=== PATIENT | male | born 1950 ===

== ENCOUNTER 2020-04-23 10:41 | Inpatient (IN) ==
[2020-04-23] MEDS ORDERED: DILTIAZEM 50 MG/10 ML VIAL IV STA (11:02)
[2020-04-23] MEDS ORDERED: SODIUM CHLORIDE 0.9% 1,000 ML IV STA (11:19)
[2020-04-23] MEDS ORDERED: dilTIAZem Drip 125 MG/125 ML PREMIX IV SCH (11:30)
[2020-04-23 12:22] LABS: Basophils # 0.1 10*3/uL (0.0-0.2); Basophils % 0.5 % (0.0-0.8); Eosinophils # 0.2 10*3/uL (0.0-0.87); Eosinophils % 1.9 % (0.00-10.9); Hematocrit 35.1 VOL% (42.0-52.0); Immature Granulocytes Absolute 0.65 #; Lymphocytes # 0.5 10*3/uL (1.4-4.0); Lymphocytes % 5.4 % (21.2-54.2); Mean Corpuscular HGB Conc 31.3 GM/DL (32-36); Mean Corpuscular Volume 93.9 FL (87-102); Mean Platelet Volume 9.6 FL (9.6-12.0); Monocytes % 6.7 % (1.7-12.7); NRBC # 0.07 10*3/uL; Neutrophils % 78.5 % (38.7-73.9); Platelet Count 106 T/CUMM (130-400); Red Blood Count 3.74 MC/CUMM (3.8-5.5); Red Cell Distribution Width 20.5 % (9.3-17.3); White Blood Count 9.3 T/CUMM (4-12)
[2020-04-23 12:37] LABS: INR 1.4; PT Patient Result 14.6 SECS (9.8-11.9); Partial Thromboplastin Time 35.5 SECS (23.9-33.8)
[2020-04-23 12:54] LABS: Albumin 1.8 G/DL (3.4-5.0); Bilirubin,Total 2.7 MG/DL (0.2-1.0); Calcium 8.1 MG/DL (8.5-10.1); Osmolality,Calculated 292.8 MOS/KG (273-304)
[2020-04-23] MEDS ORDERED: CALCIUM CHLORIDE 1,000 MG/10 ML SYRINGE IV STA (12:59)
[2020-04-23] MEDS ORDERED: DEXTROSE 50% 25 GM/50 ML VIAL IV STA (12:59)
[2020-04-23] MEDS ORDERED: INSULIN REGULAR 100 UNIT/ML IV STA (12:59)
[2020-04-23] MEDS ORDERED: SODIUM BICARBONATE 50 MEQ/50 ML VIAL IV STA (12:59)
[2020-04-23 13:03] LABS: Bacteria,Urine Occasional /HPF (Few); Blood, Urine Negative (Negative); Glucose,Urine (UA) Negative (Negative); Hyaline Casts,Urine 11 /LPF (0-3); Ketones,Urine Negative (Negative); Mucus,Urine Occasional /LPF (Occasional); Nitrite,Urine Negative (Negative); Protein,Urine Negative; RBC,Urine 6 /HPF (0-4); Squamous Epithelial Cell,Urine Occasional /HPF (0-10); Urine Appearance CLEAR (Clear); Urine Color Amber (Yellow); Urine Specific Gravity 1.017 (1.001-1.035); WBC,Urine 16 /HPF (0-6)
[2020-04-23 13:08] LABS: Bilirubin,Urine Small mg/dL (Negative)
[2020-04-23 13:12] LABS: Band Neutrophils 24 % (0-10); Eosinophils 2 % (0-10); Lymphocytes 7 % (20-55); Metamyelocytes 1 %; Nucleated Red Blood Cells 3 (0-5); Platelet Estimate Adequate; Segmented Neutrophils 61 % (50-85); Total Cells Counted 100
[2020-04-23 13:13] LABS: Anisocytosis 2+; Burr Cells Few; Macrocytosis 1+; Polychromasia Slight
[2020-04-23] MEDS ORDERED: cefTRIAXone 1,000 MG in SODIUM CHLORIDE 0.9% 100 ML IV STA (13:15)
[2020-04-23] MEDS ORDERED: DEXTROSE 50% 25 GM/50 ML SYRINGE IV ONE (13:41)
[2020-04-23] MEDS ORDERED: DIGOXIN 0.5 MG/2 ML AMP IV ONE (15:11)
[2020-04-23] MEDS ORDERED: ALBUTEROL 2.5 MG/3 ML NEB RESP TX PRN (15:13)
[2020-04-23] MEDS: SODIUM BICARB INJ 100 MEQ in STERILE WATER INJ 1,000 ML IV SCH (15:30)
[2020-04-23 16:14] LABS: Calcium 8.3 MG/DL (8.5-10.1); Osmolality,Calculated 295.2 MOS/KG (273-304)
[2020-04-23] MEDS: cefTRIAXone 1,000 MG in SYRINGE 1 EACH IV SCH (16:22)
[2020-04-23] MEDS: DOXYCYCLINE HYCLATE INJ 100 MG in SODIUM CHLORIDE 0.9% 100 ML IV SCH (21:50)
[2020-04-24] MEDS: SODIUM BICARB INJ 100 MEQ in STERILE WATER INJ 1,000 ML IV SCH ×3 (04:14→23:26)
[2020-04-24 04:39] LABS: Basophils % 0.4 % (0.0-0.8); Eosinophils # 0.3 10*3/uL (0.0-0.87); Eosinophils % 3.3 % (0.00-10.9); Hematocrit 31.4 VOL% (42.0-52.0); Hemoglobin 10.1 GM/DL (14.0-18.0); Immature Granulocytes % 6.4 %; Immature Granulocytes Absolute 0.63 #; Lymphocytes # 0.7 10*3/uL (1.4-4.0); Lymphocytes % 7.2 % (21.2-54.2); Mean Corpuscular HGB Conc 32.2 GM/DL (32-36); Mean Corpuscular Volume 92.9 FL (87-102); Monocytes % 6.7 % (1.7-12.7); NRBC # 0.12 10*3/uL; Platelet Count 109 T/CUMM (130-400); Red Blood Count 3.38 MC/CUMM (3.8-5.5); Red Cell Distribution Width 20.4 % (9.3-17.3); White Blood Count 9.8 T/CUMM (4-12)
[2020-04-24 04:47] LABS: INR 1.3; PT Patient Result 13.9 SECS (9.8-11.9)
[2020-04-24 05:00] LABS: Albumin 1.9 G/DL (3.4-5.0); Bilirubin,Total 2.2 MG/DL (0.2-1.0); Calcium 8.4 MG/DL (8.5-10.1); Osmolality,Calculated 289.7 MOS/KG (273-304); Total Protein 6.8 G/DL (6.4-8.3)
[2020-04-24 05:04] LABS: Band Neutrophils 5 % (0-10); Eosinophils 3 % (0-10); Lymphocytes 4 % (20-55); Segmented Neutrophils 82 % (50-85); Total Cells Counted 100
[2020-04-24 05:05] LABS: Hypochromasia 1+; Platelet Estimate Decreased
[2020-04-24 05:06] LABS: Macrocytosis Slight
[2020-04-24] MEDS: dilTIAZem Drip 125 MG/125 ML PREMIX IV SCH (06:28)
[2020-04-24] MEDS ORDERED: dilTIAZem Drip 125 MG/125 ML PREMIX IV SCH (06:30)
[2020-04-24] MEDS: MORPHINE 4 MG/1 ML VIAL IV PRN (08:25)
[2020-04-24] MEDS: ONDANSETRON 4 MG/2 ML VIAL IV PRN (08:25)
[2020-04-24] MEDS: DOXYCYCLINE HYCLATE INJ 100 MG in SODIUM CHLORIDE 0.9% 100 ML IV SCH ×2 (10:02→23:26)
[2020-04-24] MEDS: PANTOPRAZOLE 40 MG TABLET PO SCH (10:45)
[2020-04-24] MEDS: DIGOXIN 0.125 MG TABLET PO SCH (14:35)
[2020-04-24] MEDS: cefTRIAXone 1,000 MG in SYRINGE 1 EACH IV SCH (16:52)
[2020-04-24] MEDS: TRIAMCINOLONE 0.1% CREAM 15 GM TUBE TOP SCH ×2 (16:55→21:30)
[2020-04-24] MEDS: INSULIN LISPRO 100 UNIT/ML SUBCUT SCH (21:20)
[2020-04-24] MEDS: WARFARIN 2.5 MG TABLET PO SCH (21:24)
[2020-04-24 23:35] LABS: ABG Base Excess -3.8 MMOL/L (-2.5-2.5); ABG HCO3 21.3 MMOL/L (20-26); ABG Oxygen Saturation 98.3 % (95-100); ABG PCO2 34.5 MM HG (35-48); ABG PH 7.385 (7.35-7.45)
[2020-04-24] MEDS: SKIN HEALING OINT (AQUAPHOR) 50 GM TUBE TOP PRN (23:51)
[2020-04-25] MEDS ORDERED: SODIUM CHLORIDE 0.9% 500 ML IV ONE (00:18)
[2020-04-25 05:21] LABS: Basophils # 0.1 10*3/uL (0.0-0.2); Basophils % 0.5 % (0.0-0.8); Eosinophils # 0.4 10*3/uL (0.0-0.87); Eosinophils % 3.9 % (0.00-10.9); Hematocrit 30.2 VOL% (42.0-52.0); Hemoglobin 9.7 GM/DL (14.0-18.0); Immature Granulocytes % 7.1 %; Immature Granulocytes Absolute 0.73 #; Lymphocytes # 0.8 10*3/uL (1.4-4.0); Lymphocytes % 8.1 % (21.2-54.2); Mean Corpuscular HGB Conc 32.1 GM/DL (32-36); Mean Corpuscular Volume 92.6 FL (87-102); Mean Platelet Volume 9.8 FL (9.6-12.0); Monocytes % 5.7 % (1.7-12.7); NRBC # 0.14 10*3/uL; Neutrophils % 74.7 % (38.7-73.9); Red Blood Count 3.26 MC/CUMM (3.8-5.5); Red Cell Distribution Width 20.8 % (9.3-17.3); White Blood Count 10.3 T/CUMM (4-12)
[2020-04-25 05:35] LABS: Platelet Count 95 T/CUMM (130-400)
[2020-04-25 05:48] LABS: Band Neutrophils 2 % (0-10); Eosinophils 4 % (0-10); Hypochromasia Slight; Lymphocytes 5 % (20-55); Nucleated Red Blood Cells 2 (0-5); Platelet Estimate Decreased; Segmented Neutrophils 85 % (50-85); Total Cells Counted 100
[2020-04-25 06:03] LABS: Albumin 1.6 G/DL (3.4-5.0); Bilirubin,Total 1.9 MG/DL (0.2-1.0); Calcium 7.5 MG/DL (8.5-10.1); Osmolality,Calculated 281.1 MOS/KG (273-304); Total Protein 5.9 G/DL (6.4-8.3)
[2020-04-25] MEDS: dilTIAZem Drip 125 MG/125 ML PREMIX IV SCH ×2 (07:57→23:48)
[2020-04-25] MEDS: INSULIN LISPRO 100 UNIT/ML SUBCUT SCH ×4 (08:29→21:05)
[2020-04-25] MEDS: PANTOPRAZOLE 40 MG TABLET PO SCH (09:33)
[2020-04-25] MEDS: DOXYCYCLINE HYCLATE INJ 100 MG in SODIUM CHLORIDE 0.9% 100 ML IV SCH ×2 (09:33→21:04)
[2020-04-25] MEDS: SODIUM BICARB INJ 100 MEQ in STERILE WATER INJ 1,000 ML IV SCH ×2 (10:45→21:06)
[2020-04-25] MEDS: SKIN HEALING OINT (AQUAPHOR) 50 GM TUBE TOP PRN (12:00)
[2020-04-25] MEDS: TRIAMCINOLONE 0.1% CREAM 80 GM TUBE TOP SCH ×2 (13:00→21:07)
[2020-04-25] MEDS: DIGOXIN 0.125 MG TABLET PO SCH (13:41)
[2020-04-25] MEDS: cefTRIAXone 1,000 MG in SYRINGE 1 EACH IV SCH (15:00)
[2020-04-25] MEDS: SODIUM HYPOCHLORITE 0.25% IRRIG 473 ML BOTTLE TOP SCH (16:19)
[2020-04-25] MEDS: NOREPINEPHRINE 16 MG in SODIUM CHLORIDE 0.9% 234 ML IV PRN (17:19)
[2020-04-25] MEDS: WARFARIN 2.5 MG TABLET PO SCH (17:43)
[2020-04-26] MEDS: SKIN HEALING OINT (AQUAPHOR) 50 GM TUBE TOP PRN ×3 (04:34→16:30)
[2020-04-26 04:48] LABS: Basophils # 0.1 10*3/uL (0.0-0.2); Basophils % 0.5 % (0.0-0.8); Eosinophils # 0.1 10*3/uL (0.0-0.87); Eosinophils % 0.8 % (0.00-10.9); Hematocrit 29.9 VOL% (42.0-52.0); Hemoglobin 9.9 GM/DL (14.0-18.0); Immature Granulocytes % 6.6 %; Immature Granulocytes Absolute 0.76 #; Lymphocytes # 0.8 10*3/uL (1.4-4.0); Lymphocytes % 7.3 % (21.2-54.2); Mean Corpuscular HGB Conc 33.1 GM/DL (32-36); Mean Corpuscular Volume 91.4 FL (87-102); Mean Platelet Volume 10.1 FL (9.6-12.0); Monocytes % 6.3 % (1.7-12.7); NRBC # 0.13 10*3/uL; Neutrophils % 78.5 % (38.7-73.9); Platelet Count 102 T/CUMM (130-400); Red Blood Count 3.27 MC/CUMM (3.8-5.5); Red Cell Distribution Width 20.8 % (9.3-17.3); White Blood Count 11.5 T/CUMM (4-12)
[2020-04-26] MEDS: dilTIAZem Drip 125 MG/125 ML PREMIX IV SCH (05:05)
[2020-04-26 05:14] LABS: Lymphocytes 7 % (20-55); Nucleated Red Blood Cells 1 (0-5); Platelet Estimate Decreased; Segmented Neutrophils 89 % (50-85); Total Cells Counted 100
[2020-04-26 05:15] LABS: Hypochromasia 1+; Microcytosis 1+; Ovalocytes Slight
[2020-04-26 07:25] LABS: Albumin 1.8 G/DL (3.4-5.0); Bilirubin,Total 1.8 MG/DL (0.2-1.0); Calcium 7.1 MG/DL (8.5-10.1); Osmolality,Calculated 276.6 MOS/KG (273-304); Total Protein 6.2 G/DL (6.4-8.3)
[2020-04-26] MEDS: ONDANSETRON 4 MG/2 ML VIAL IV PRN (07:28)
[2020-04-26] MEDS: INSULIN LISPRO 100 UNIT/ML SUBCUT SCH ×4 (07:29→21:06)
[2020-04-26] MEDS: SODIUM BICARB INJ 100 MEQ in STERILE WATER INJ 1,000 ML IV SCH ×2 (09:11→20:50)
[2020-04-26] MEDS ORDERED: SODIUM POLYSTYRENE SULFATE 15 GM/60 ML BOTTLE PO ONE ×2 (09:17→17:19)
[2020-04-26] MEDS: DOXYCYCLINE HYCLATE INJ 100 MG in SODIUM CHLORIDE 0.9% 100 ML IV SCH ×2 (09:20→21:09)
[2020-04-26] MEDS: PANTOPRAZOLE 40 MG TABLET PO SCH (09:20)
[2020-04-26] MEDS: TRIAMCINOLONE 0.1% CREAM 80 GM TUBE TOP SCH ×2 (09:20→21:10)
[2020-04-26] MEDS: SODIUM HYPOCHLORITE 0.25% IRRIG 473 ML BOTTLE TOP SCH (09:20)
[2020-04-26] MEDS: DIGOXIN 0.125 MG TABLET PO SCH (12:33)
[2020-04-26] MEDS ORDERED: SODIUM POLYSTYRENE SULFATE 15 GM/60 ML BOTTLE PO PRN (14:19)
[2020-04-26] MEDS: cefTRIAXone 1,000 MG in SYRINGE 1 EACH IV SCH (15:00)
[2020-04-26] MEDS: WARFARIN 2.5 MG TABLET PO SCH (17:48)
[2020-04-26] MEDS: NOREPINEPHRINE 16 MG in SODIUM CHLORIDE 0.9% 234 ML IV PRN (21:03)
[2020-04-26] MEDS: ALBUMIN 25% 25 GM in PREMIX 1 EACH IV SCH (21:08)
[2020-04-27 05:29] LABS: Basophils % 0.2 % (0.0-0.8); Eosinophils % 0.4 % (0.00-10.9); Hematocrit 25.8 VOL% (42.0-52.0); Hemoglobin 8.7 GM/DL (14.0-18.0); Immature Granulocytes % 4.5 %; Immature Granulocytes Absolute 0.47 #; Lymphocytes # 0.8 10*3/uL (1.4-4.0); Lymphocytes % 7.9 % (21.2-54.2); Mean Corpuscular HGB Conc 33.7 GM/DL (32-36); Mean Platelet Volume 10.1 FL (9.6-12.0); Monocytes % 6.6 % (1.7-12.7); NRBC # 0.07 10*3/uL; Neutrophils % 80.4 % (38.7-73.9); Red Cell Distribution Width 21.1 % (9.3-17.3); White Blood Count 10.3 T/CUMM (4-12)
[2020-04-27 05:30] LABS: INR 1.4; PT Patient Result 14.8 SECS (9.8-11.9)
[2020-04-27 05:31] LABS: Platelet Count 98 T/CUMM (130-400)
[2020-04-27 05:47] LABS: Calcium 7.1 MG/DL (8.5-10.1); Osmolality,Calculated 286.2 MOS/KG (273-304); Total Protein 6.2 G/DL (6.4-8.3)
[2020-04-27 06:00] LABS: Platelet Estimate Decreased
[2020-04-27 06:26] LABS: Hypochromasia 1+
[2020-04-27] MEDS: dilTIAZem Drip 125 MG/125 ML PREMIX IV SCH ×2 (06:33→22:32)
[2020-04-27] MEDS: SODIUM BICARB INJ 100 MEQ in STERILE WATER INJ 1,000 ML IV SCH ×2 (07:00→23:21)
[2020-04-27] MEDS: INSULIN LISPRO 100 UNIT/ML SUBCUT SCH ×4 (07:50→21:49)
[2020-04-27] MEDS: ALBUMIN 25% 25 GM in PREMIX 1 EACH IV SCH ×2 (08:45→21:48)
[2020-04-27] MEDS: PANTOPRAZOLE 40 MG TABLET PO SCH (08:45)
[2020-04-27] MEDS: TRIAMCINOLONE 0.1% CREAM 80 GM TUBE TOP SCH ×2 (09:15→21:48)
[2020-04-27] MEDS: DOXYCYCLINE HYCLATE INJ 100 MG in SODIUM CHLORIDE 0.9% 100 ML IV SCH ×2 (11:15→21:48)
[2020-04-27] MEDS: SODIUM HYPOCHLORITE 0.25% IRRIG 473 ML BOTTLE TOP SCH (13:15)
[2020-04-27] MEDS: DIGOXIN 0.125 MG TABLET PO SCH (13:25)
[2020-04-27] MEDS: cefTRIAXone 1,000 MG in SYRINGE 1 EACH IV SCH (15:05)
[2020-04-27] MEDS: WARFARIN 2.5 MG TABLET PO SCH (17:28)
[2020-04-27] MEDS: NOREPINEPHRINE 16 MG in SODIUM CHLORIDE 0.9% 234 ML IV PRN (22:47)
[2020-04-28 04:11] LABS: Basophils % 0.3 % (0.0-0.8); Eosinophils # 0.1 10*3/uL (0.0-0.87); Eosinophils % 0.8 % (0.00-10.9); Hematocrit 22.2 VOL% (42.0-52.0); Hemoglobin 7.3 GM/DL (14.0-18.0); Immature Granulocytes % 3.5 %; Immature Granulocytes Absolute 0.25 #; Lymphocytes # 0.5 10*3/uL (1.4-4.0); Lymphocytes % 6.5 % (21.2-54.2); Mean Corpuscular HGB Conc 32.9 GM/DL (32-36); Mean Corpuscular Volume 90.6 FL (87-102); Mean Platelet Volume 9.7 FL (9.6-12.0); Monocytes % 7.7 % (1.7-12.7); NRBC # 0.03 10*3/uL; Neutrophils % 81.2 % (38.7-73.9); Platelet Count 57 T/CUMM (130-400); Red Blood Count 2.45 MC/CUMM (3.8-5.5); Red Cell Distribution Width 20.7 % (9.3-17.3); White Blood Count 7.1 T/CUMM (4-12)
[2020-04-28 04:15] LABS: INR 1.8; PT Patient Result 19.2 SECS (9.8-11.9)
[2020-04-28 04:24] LABS: Albumin 2.5 G/DL (3.4-5.0); Bilirubin,Total 1.8 MG/DL (0.2-1.0); Calcium 7.1 MG/DL (8.5-10.1); Osmolality,Calculated 291.9 MOS/KG (273-304); Total Protein 6.1 G/DL (6.4-8.3)
[2020-04-28 05:06] LABS: Hypochromasia 2+; Microcytosis 1+; Ovalocytes Slight; Platelet Estimate Decreased
[2020-04-28] MEDS: SKIN HEALING OINT (AQUAPHOR) 50 GM TUBE TOP PRN ×2 (06:18→21:39)
[2020-04-28] MEDS: dilTIAZem Drip 125 MG/125 ML PREMIX IV SCH (07:00)
[2020-04-28] MEDS: INSULIN LISPRO 100 UNIT/ML SUBCUT SCH ×4 (07:43→21:39)
[2020-04-28] MEDS: ALBUMIN 25% 25 GM in PREMIX 1 EACH IV SCH ×2 (08:25→21:38)
[2020-04-28] MEDS: PANTOPRAZOLE 40 MG TABLET PO SCH (08:25)
[2020-04-28] MEDS: DOXYCYCLINE HYCLATE INJ 100 MG in SODIUM CHLORIDE 0.9% 100 ML IV SCH ×2 (09:40→21:43)
[2020-04-28] MEDS: SODIUM BICARB INJ 100 MEQ in STERILE WATER INJ 1,000 ML IV SCH ×2 (10:25→21:39)
[2020-04-28] MEDS: DIGOXIN 0.125 MG TABLET PO SCH (12:10)
[2020-04-28] MEDS: cefTRIAXone 1,000 MG in SYRINGE 1 EACH IV SCH (14:50)
[2020-04-28] MEDS: hydrOXYzine HCL 10 MG TABLET PO PRN (16:55)
[2020-04-28] MEDS: SODIUM HYPOCHLORITE 0.25% IRRIG 473 ML BOTTLE TOP SCH (17:15)
[2020-04-28] MEDS: TRIAMCINOLONE 0.1% CREAM 80 GM TUBE TOP SCH ×2 (17:15→21:39)
[2020-04-28] MEDS: WARFARIN 2.5 MG TABLET PO SCH (17:25)
[2020-04-29 04:07] LABS: Eosinophils % 0.3 % (0.00-10.9); Hematocrit 22.4 VOL% (42.0-52.0); Hemoglobin 7.4 GM/DL (14.0-18.0); Immature Granulocytes % 2.9 %; Immature Granulocytes Absolute 0.18 #; Lymphocytes # 0.4 10*3/uL (1.4-4.0); Lymphocytes % 6.2 % (21.2-54.2); Mean Corpuscular Volume 91.4 FL (87-102); Mean Platelet Volume 10.3 FL (9.6-12.0); Monocytes % 8.9 % (1.7-12.7); NRBC # 0.04 10*3/uL; Neutrophils % 81.7 % (38.7-73.9); Red Blood Count 2.45 MC/CUMM (3.8-5.5); Red Cell Distribution Width 20.2 % (9.3-17.3); White Blood Count 6.3 T/CUMM (4-12)
[2020-04-29 04:08] LABS: Platelet Count 49 T/CUMM (130-400)
[2020-04-29 04:20] LABS: INR 2.5; PT Patient Result 25.8 SECS (9.8-11.9)
[2020-04-29 04:28] LABS: Albumin 2.9 G/DL (3.4-5.0); Bilirubin,Total 1.9 MG/DL (0.2-1.0); Calcium 7.4 MG/DL (8.5-10.1); Osmolality,Calculated 289.2 MOS/KG (273-304); Total Protein 6.3 G/DL (6.4-8.3)
[2020-04-29 04:35] LABS: Hypochromasia 2+; Microcytosis 1+; Ovalocytes Slight; Platelet Estimate Decreased
[2020-04-29] MEDS: SODIUM BICARB INJ 100 MEQ in STERILE WATER INJ 1,000 ML IV SCH (05:25)
[2020-04-29] MEDS: ALBUMIN 25% 25 GM in PREMIX 1 EACH IV SCH ×2 (08:21→21:40)
[2020-04-29] MEDS: TRIAMCINOLONE 0.1% CREAM 80 GM TUBE TOP SCH ×2 (08:22→21:40)
[2020-04-29] MEDS: PANTOPRAZOLE 40 MG TABLET PO SCH (08:22)
[2020-04-29] MEDS: SODIUM HYPOCHLORITE 0.25% IRRIG 473 ML BOTTLE TOP SCH (08:22)
[2020-04-29] MEDS: INSULIN LISPRO 100 UNIT/ML SUBCUT SCH ×4 (08:34→21:28)
[2020-04-29] MEDS: DOXYCYCLINE HYCLATE INJ 100 MG in SODIUM CHLORIDE 0.9% 100 ML IV SCH ×2 (10:53→21:27)
[2020-04-29] MEDS: DIGOXIN 0.125 MG TABLET PO SCH (14:49)
[2020-04-29] MEDS: SODIUM BICARBONATE 650 MG TABLET PO SCH ×2 (14:50→21:28)
[2020-04-29] MEDS: cefTRIAXone 1,000 MG in SYRINGE 1 EACH IV SCH (14:50)
[2020-04-29] MEDS: WARFARIN 2.5 MG TABLET PO SCH (17:15)
[2020-04-30 06:24] LABS: Basophils % 0.1 % (0.0-0.8); Eosinophils # 0.1 10*3/uL (0.0-0.87); Eosinophils % 0.8 % (0.00-10.9); Hematocrit 23.9 VOL% (42.0-52.0); Hemoglobin 7.5 GM/DL (14.0-18.0); Immature Granulocytes % 2.1 %; Immature Granulocytes Absolute 0.15 #; Lymphocytes # 0.4 10*3/uL (1.4-4.0); Mean Corpuscular HGB Conc 31.4 GM/DL (32-36); Mean Corpuscular Volume 92.6 FL (87-102); Mean Platelet Volume 10.3 FL (9.6-12.0); Monocytes % 6.8 % (1.7-12.7); NRBC # 0.04 10*3/uL; Neutrophils % 85.2 % (38.7-73.9); Red Blood Count 2.58 MC/CUMM (3.8-5.5); Red Cell Distribution Width 20.4 % (9.3-17.3); White Blood Count 7.2 T/CUMM (4-12)
[2020-04-30 06:26] LABS: Platelet Count 58 T/CUMM (130-400)
[2020-04-30 06:32] LABS: INR 2.9; PT Patient Result 29.7 SECS (9.8-11.9)
[2020-04-30 06:45] LABS: Hypochromasia 2+; Microcytosis 1+; Platelet Estimate Decreased
[2020-04-30 06:49] LABS: Albumin 3.1 G/DL (3.4-5.0); Bilirubin,Total 1.9 MG/DL (0.2-1.0); Calcium 8.1 MG/DL (8.5-10.1); Osmolality,Calculated 294.9 MOS/KG (273-304); Total Protein 6.7 G/DL (6.4-8.3)
[2020-04-30] MEDS: SODIUM BICARBONATE 650 MG TABLET PO SCH (09:47)
[2020-04-30] MEDS: INSULIN LISPRO 100 UNIT/ML SUBCUT SCH ×4 (09:48→21:30)
[2020-04-30] MEDS: cefTRIAXone 1,000 MG in SYRINGE 1 EACH IV SCH (09:48)
[2020-04-30] MEDS: DOXYCYCLINE HYCLATE INJ 100 MG in SODIUM CHLORIDE 0.9% 100 ML IV SCH ×2 (09:49→21:28)
[2020-04-30] MEDS: TRIAMCINOLONE 0.1% CREAM 80 GM TUBE TOP SCH ×2 (09:49→21:32)
[2020-04-30] MEDS: SODIUM HYPOCHLORITE 0.25% IRRIG 473 ML BOTTLE TOP SCH (09:49)
[2020-04-30] MEDS: PANTOPRAZOLE 40 MG TABLET PO SCH (09:49)
[2020-04-30] MEDS: ALBUMIN 25% 25 GM in PREMIX 1 EACH IV SCH ×2 (11:05→22:40)
[2020-04-30] MEDS: DIGOXIN 0.125 MG TABLET PO SCH (12:01)
[2020-04-30] MEDS: WARFARIN 2.5 MG TABLET PO SCH (17:11)
[2020-04-30] MEDS: ZINC OXIDE PASTE 113 GM TUBE TOP SCH (21:32)
[2020-05-01] MEDS: hydrOXYzine HCL 10 MG TABLET PO PRN ×3 (04:59→21:43)
[2020-05-01] MEDS ORDERED: DIGOXIN 0.125 MG TABLET PO ONE (05:15)
[2020-05-01 09:24] LABS: INR 3.2; PT Patient Result 32.4 SECS (9.8-11.9)
[2020-05-01] MEDS: PANTOPRAZOLE 40 MG TABLET PO SCH (09:42)
[2020-05-01] MEDS: SODIUM BICARBONATE 650 MG TABLET PO SCH (09:42)
[2020-05-01] MEDS: TRIAMCINOLONE 0.1% CREAM 80 GM TUBE TOP SCH ×2 (09:43→21:25)
[2020-05-01] MEDS: ZINC OXIDE PASTE 113 GM TUBE TOP SCH ×2 (09:43→21:25)
[2020-05-01] MEDS: ALBUMIN 25% 25 GM in PREMIX 1 EACH IV SCH ×2 (09:55→23:27)
[2020-05-01] MEDS: DIGOXIN 0.125 MG TABLET PO SCH (12:32)
[2020-05-01] MEDS: INSULIN LISPRO 100 UNIT/ML SUBCUT SCH ×3 (12:51→21:35)
[2020-05-01 15:06] LABS: Hematocrit 21.4 VOL% (42.0-52.0); Hemoglobin 6.8 GM/DL (14.0-18.0)
[2020-05-01] MEDS: MORPHINE 4 MG/1 ML VIAL IV PRN (15:16)
[2020-05-01] MEDS: SODIUM HYPOCHLORITE 0.25% IRRIG 473 ML BOTTLE TOP SCH (15:17)
[2020-05-01] MEDS ORDERED: SODIUM CHLORIDE 0.9% 1,000 ML IV PRN (15:45)
[2020-05-01] MEDS ORDERED: ENOXAPARIN 100 MG/ML SYRINGE SUBCUT SCH (21:00)
[2020-05-01] MEDS: METOPROLOL TARTRATE 25 MG TABLET PO SCH (21:25)
[2020-05-02 01:27] LABS: INR 3.4
[2020-05-02 01:28] LABS: PT Patient Result 34.2 SECS (9.8-11.9)
[2020-05-02 01:36] LABS: Hematocrit 23.9 VOL% (42.0-52.0); Hemoglobin 7.6 GM/DL (14.0-18.0)
[2020-05-02 05:42] LABS: Basophils % 0.2 % (0.0-0.8); Eosinophils # 0.4 10*3/uL (0.0-0.87); Eosinophils % 3.5 % (0.00-10.9); Hemoglobin 7.7 GM/DL (14.0-18.0); Immature Granulocytes % 2.2 %; Immature Granulocytes Absolute 0.23 #; Lymphocytes # 0.6 10*3/uL (1.4-4.0); Lymphocytes % 5.4 % (21.2-54.2); Mean Corpuscular HGB Conc 32.1 GM/DL (32-36); Mean Corpuscular Volume 92.3 FL (87-102); Mean Platelet Volume 10.5 FL (9.6-12.0); NRBC # 0.04 10*3/uL; Neutrophils % 83.7 % (38.7-73.9); Red Cell Distribution Width 19.2 % (9.3-17.3); White Blood Count 10.3 T/CUMM (4-12)
[2020-05-02 05:46] LABS: INR 3.5; Partial Thromboplastin Time 59.2 SECS (23.9-33.8)
[2020-05-02 05:47] LABS: Platelet Count 85 T/CUMM (130-400)
[2020-05-02 06:01] LABS: Albumin 3.1 G/DL (3.4-5.0); Bilirubin,Total 2.3 MG/DL (0.2-1.0); Osmolality,Calculated 309.2 MOS/KG (273-304)
[2020-05-02 06:36] LABS: Eosinophils 3 % (0-10); Lymphocytes 5 % (20-55); Metamyelocytes 3 %; Nucleated Red Blood Cells 2 (0-5); Segmented Neutrophils 83 % (50-85); Total Cells Counted 100
[2020-05-02 06:37] LABS: Platelet Estimate Decreased
[2020-05-02] MEDS: ALBUMIN 25% 25 GM in PREMIX 1 EACH IV SCH (09:37)
[2020-05-02] MEDS: PANTOPRAZOLE 40 MG TABLET PO SCH (09:42)
[2020-05-02] MEDS: SODIUM BICARBONATE 650 MG TABLET PO SCH (09:42)
[2020-05-02] MEDS: METOPROLOL TARTRATE 25 MG TABLET PO SCH ×2 (09:42→21:52)
[2020-05-02] MEDS: SODIUM HYPOCHLORITE 0.25% IRRIG 473 ML BOTTLE TOP SCH (09:43)
[2020-05-02] MEDS: ZINC OXIDE PASTE 113 GM TUBE TOP SCH ×2 (09:43→21:53)
[2020-05-02] MEDS: TRIAMCINOLONE 0.1% CREAM 80 GM TUBE TOP SCH ×2 (09:43→21:53)
[2020-05-02] MEDS: INSULIN LISPRO 100 UNIT/ML SUBCUT SCH ×4 (10:18→21:39)
[2020-05-03 05:43] LABS: Basophils % 0.3 % (0.0-0.8); Eosinophils # 0.5 10*3/uL (0.0-0.87); Eosinophils % 5.2 % (0.00-10.9); Immature Granulocytes % 1.8 %; Immature Granulocytes Absolute 0.18 #; Lymphocytes # 0.5 10*3/uL (1.4-4.0); Lymphocytes % 5.1 % (21.2-54.2); Mean Corpuscular Volume 91.6 FL (87-102); Mean Platelet Volume 10.4 FL (9.6-12.0); NRBC # 0.03 10*3/uL; Neutrophils % 82.6 % (38.7-73.9); Platelet Count 109 T/CUMM (130-400); Red Blood Count 2.73 MC/CUMM (3.8-5.5); Red Cell Distribution Width 19.8 % (9.3-17.3); White Blood Count 10.2 T/CUMM (4-12)
[2020-05-03 05:53] LABS: INR 3.1
[2020-05-03 05:55] LABS: INR 3.1; PT Patient Result 31.5 SECS (9.8-11.9); Partial Thromboplastin Time 55.5 SECS (23.9-33.8)
[2020-05-03 06:19] LABS: Albumin 2.9 G/DL (3.4-5.0); Bilirubin,Total 2.8 MG/DL (0.2-1.0); Osmolality,Calculated 315.2 MOS/KG (273-304); Total Protein 5.9 G/DL (6.4-8.3)
[2020-05-03] MEDS: INSULIN LISPRO 100 UNIT/ML SUBCUT SCH ×3 (08:57→18:11)
[2020-05-03] MEDS: ZINC OXIDE PASTE 113 GM TUBE TOP SCH ×2 (08:58→20:36)
[2020-05-03] MEDS: TRIAMCINOLONE 0.1% CREAM 80 GM TUBE TOP SCH ×2 (08:58→20:37)
[2020-05-03] MEDS: SODIUM HYPOCHLORITE 0.25% IRRIG 473 ML BOTTLE TOP SCH (08:58)
[2020-05-03] MEDS: SODIUM BICARBONATE 650 MG TABLET PO SCH (08:58)
[2020-05-03] MEDS: PANTOPRAZOLE 40 MG TABLET PO SCH (08:58)
[2020-05-03] MEDS: METOPROLOL TARTRATE 25 MG TABLET PO SCH ×2 (08:58→20:37)
[2020-05-04] MEDS: INSULIN LISPRO 100 UNIT/ML SUBCUT SCH ×5 (02:42→21:26)
[2020-05-04 06:12] LABS: Basophils % 0.3 % (0.0-0.8); Eosinophils # 0.4 10*3/uL (0.0-0.87); Eosinophils % 3.2 % (0.00-10.9); Hematocrit 24.7 VOL% (42.0-52.0); Hemoglobin 7.9 GM/DL (14.0-18.0); Immature Granulocytes % 1.8 %; Lymphocytes # 0.7 10*3/uL (1.4-4.0); Lymphocytes % 6.5 % (21.2-54.2); Mean Corpuscular Volume 91.5 FL (87-102); Mean Platelet Volume 10.3 FL (9.6-12.0); Monocytes % 6.4 % (1.7-12.7); NRBC # 0.04 10*3/uL; Neutrophils % 81.8 % (38.7-73.9); Platelet Count 115 T/CUMM (130-400); Red Cell Distribution Width 20.1 % (9.3-17.3)
[2020-05-04 06:19] LABS: INR 2.7; INR 2.8
[2020-05-04 06:32] LABS: Albumin 2.6 G/DL (3.4-5.0); Bilirubin,Total 3.7 MG/DL (0.2-1.0); Calcium 8.9 MG/DL (8.5-10.1); Osmolality,Calculated 328.5 MOS/KG (273-304); Total Protein 5.9 G/DL (6.4-8.3)
[2020-05-04 06:56] LABS: PT Patient Result 27.5 SECS (9.8-11.9); PT Patient Result 28.2 SECS (9.8-11.9)
[2020-05-04] MEDS: METOPROLOL TARTRATE 25 MG TABLET PO SCH ×2 (08:31→21:24)
[2020-05-04] MEDS: PANTOPRAZOLE 40 MG TABLET PO SCH (08:31)
[2020-05-04] MEDS: SODIUM BICARBONATE 650 MG TABLET PO SCH (08:31)
[2020-05-04] MEDS: hydrOXYzine HCL 10 MG TABLET PO PRN (08:31)
[2020-05-04] MEDS: SODIUM HYPOCHLORITE 0.25% IRRIG 473 ML BOTTLE TOP SCH (08:38)
[2020-05-04] MEDS: TRIAMCINOLONE 0.1% CREAM 80 GM TUBE TOP SCH ×2 (08:38→21:25)
[2020-05-04] MEDS: ZINC OXIDE PASTE 113 GM TUBE TOP SCH ×2 (08:38→20:07)
[2020-05-04] MEDS: SKIN HEALING OINT (AQUAPHOR) 50 GM TUBE TOP PRN (20:07)
[2020-05-04] MEDS: LACTULOSE 20 GM/30 ML UDCUP PO SCH (21:24)
[2020-05-05] MEDS: SKIN HEALING OINT (AQUAPHOR) 50 GM TUBE TOP PRN ×2 (09:37→16:27)
[2020-05-05] MEDS: LACTULOSE 20 GM/30 ML UDCUP PO SCH ×3 (09:37→21:18)
[2020-05-05] MEDS: SODIUM BICARBONATE 650 MG TABLET PO SCH (09:37)
[2020-05-05] MEDS: METOPROLOL TARTRATE 25 MG TABLET PO SCH ×3 (09:38→20:58)
[2020-05-05] MEDS: PANTOPRAZOLE 40 MG TABLET PO SCH (09:40)
[2020-05-05] MEDS: INSULIN LISPRO 100 UNIT/ML SUBCUT SCH ×4 (09:41→20:58)
[2020-05-05] MEDS: TRIAMCINOLONE 0.1% CREAM 80 GM TUBE TOP SCH ×2 (09:50→20:59)
[2020-05-05] MEDS: ZINC OXIDE PASTE 113 GM TUBE TOP SCH ×2 (09:50→20:58)
[2020-05-05] MEDS: SODIUM HYPOCHLORITE 0.25% IRRIG 473 ML BOTTLE TOP SCH (09:50)
[2020-05-05] MEDS: DEXTROSE 5% NACL 0.9% 1,000 ML IV SCH ×2 (11:30→23:23)
[2020-05-05 13:47] LABS: Basophils % 0.3 % (0.0-0.8); Eosinophils # 0.3 10*3/uL (0.0-0.87); Hematocrit 25.3 VOL% (42.0-52.0); Hemoglobin 7.8 GM/DL (14.0-18.0); Immature Granulocytes % 1.6 %; Immature Granulocytes Absolute 0.16 #; Lymphocytes # 0.6 10*3/uL (1.4-4.0); Lymphocytes % 5.6 % (21.2-54.2); Mean Corpuscular HGB Conc 30.8 GM/DL (32-36); Mean Corpuscular Volume 94.1 FL (87-102); Mean Platelet Volume 10.6 FL (9.6-12.0); Monocytes % 7.7 % (1.7-12.7); NRBC # 0.05 10*3/uL; Neutrophils % 81.8 % (38.7-73.9); Platelet Count 125 T/CUMM (130-400); Red Blood Count 2.69 MC/CUMM (3.8-5.5); Red Cell Distribution Width 21.1 % (9.3-17.3); White Blood Count 10.2 T/CUMM (4-12)
[2020-05-05 14:10] LABS: Albumin 2.6 G/DL (3.4-5.0); Bilirubin,Total 4.8 MG/DL (0.2-1.0); Calcium 8.7 MG/DL (8.5-10.1); Osmolality,Calculated 336.3 MOS/KG (273-304); Total Protein 6.1 G/DL (6.4-8.3)
[2020-05-05 15:25] LABS: PT Patient Result 30.7 SECS (9.8-11.9); Partial Thromboplastin Time 53.5 SECS (23.9-33.8)
[2020-05-05] MEDS: RIFAXIMIN 550 MG TABLET PO SCH ×2 (20:58)
[2020-05-06 07:27] LABS: Basophils % 0.3 % (0.0-0.8); Eosinophils # 0.2 10*3/uL (0.0-0.87); Eosinophils % 1.8 % (0.00-10.9); Hematocrit 25.9 VOL% (42.0-52.0); Hemoglobin 8.3 GM/DL (14.0-18.0); Immature Granulocytes Absolute 0.22 #; Lymphocytes # 0.6 10*3/uL (1.4-4.0); Lymphocytes % 5.7 % (21.2-54.2); Mean Corpuscular Volume 91.8 FL (87-102); Mean Platelet Volume 10.8 FL (9.6-12.0); Monocytes % 6.1 % (1.7-12.7); NRBC # 0.06 10*3/uL; Neutrophils % 84.1 % (38.7-73.9); Platelet Count 96 T/CUMM (130-400); Red Blood Count 2.82 MC/CUMM (3.8-5.5); Red Cell Distribution Width 20.6 % (9.3-17.3); White Blood Count 11.3 T/CUMM (4-12)
[2020-05-06] MEDS: INSULIN LISPRO 100 UNIT/ML SUBCUT SCH ×4 (07:42→22:48)
[2020-05-06 07:48] LABS: Albumin 2.5 G/DL (3.4-5.0); Bilirubin,Total 4.5 MG/DL (0.2-1.0); Calcium 8.5 MG/DL (8.5-10.1); Total Protein 5.9 G/DL (6.4-8.3)
[2020-05-06 08:20] LABS: Osmolality,Calculated 299.8 MOS/KG (273-304)
[2020-05-06 08:31] LABS: INR 2.7; PT Patient Result 27.4 SECS (9.8-11.9); Partial Thromboplastin Time 53.2 SECS (23.9-33.8)
[2020-05-06 08:32] LABS: Platelet Estimate Decreased
[2020-05-06 08:33] LABS: Anisocytosis Slight; Macrocytosis Slight
[2020-05-06] MEDS: DEXTROSE 5% NACL 0.9% 1,000 ML IV SCH ×3 (09:58→18:58)
[2020-05-06] MEDS: METOPROLOL TARTRATE 25 MG TABLET PO SCH ×2 (10:51→22:49)
[2020-05-06] MEDS: LACTULOSE 20 GM/30 ML UDCUP PO SCH ×3 (10:51→22:48)
[2020-05-06] MEDS: RIFAXIMIN 550 MG TABLET PO SCH ×2 (10:51→22:49)
[2020-05-06] MEDS: PANTOPRAZOLE 40 MG TABLET PO SCH (10:51)
[2020-05-06] MEDS: SODIUM HYPOCHLORITE 0.25% IRRIG 473 ML BOTTLE TOP SCH (10:52)
[2020-05-06] MEDS: ZINC OXIDE PASTE 113 GM TUBE TOP SCH ×2 (10:53→21:40)
[2020-05-06] MEDS: TRIAMCINOLONE 0.1% CREAM 80 GM TUBE TOP SCH ×2 (10:53→21:40)
[2020-05-07] MEDS: DEXTROSE 5% NACL 0.9% 1,000 ML IV SCH (04:02)
[2020-05-07 06:06] LABS: Basophils % 0.3 % (0.0-0.8); Eosinophils # 0.2 10*3/uL (0.0-0.87); Eosinophils % 1.6 % (0.00-10.9); Hematocrit 24.5 VOL% (42.0-52.0); Hemoglobin 7.7 GM/DL (14.0-18.0); Immature Granulocytes % 1.5 %; Immature Granulocytes Absolute 0.15 #; Lymphocytes # 0.6 10*3/uL (1.4-4.0); Lymphocytes % 5.6 % (21.2-54.2); Mean Corpuscular HGB Conc 31.4 GM/DL (32-36); Mean Corpuscular Volume 93.5 FL (87-102); Mean Platelet Volume 10.6 FL (9.6-12.0); Monocytes % 5.4 % (1.7-12.7); NRBC # 0.11 10*3/uL; Neutrophils % 85.6 % (38.7-73.9); Platelet Count 107 T/CUMM (130-400); Red Blood Count 2.62 MC/CUMM (3.8-5.5); Red Cell Distribution Width 21.4 % (9.3-17.3); White Blood Count 10.3 T/CUMM (4-12)
[2020-05-07 06:15] LABS: INR 3.2
[2020-05-07 06:37] LABS: Albumin 2.3 G/DL (3.4-5.0); Bilirubin,Total 5.6 MG/DL (0.2-1.0); Calcium 8.8 MG/DL (8.5-10.1); Osmolality,Calculated 355.1 MOS/KG (273-304)
[2020-05-07 06:40] LABS: PT Patient Result 32.4 SECS (9.8-11.9); Partial Thromboplastin Time 57.2 SECS (23.9-33.8)
[2020-05-07] MEDS: INSULIN LISPRO 100 UNIT/ML SUBCUT SCH ×3 (09:11→16:49)
[2020-05-07] MEDS: LACTULOSE 20 GM/30 ML UDCUP PO SCH ×2 (09:12→16:09)
[2020-05-07] MEDS: PANTOPRAZOLE 40 MG TABLET PO SCH (09:12)
[2020-05-07] MEDS: RIFAXIMIN 550 MG TABLET PO SCH (09:12)
[2020-05-07] MEDS: METOPROLOL TARTRATE 25 MG TABLET PO SCH ×2 (09:12→22:38)
[2020-05-07] MEDS: ZINC OXIDE PASTE 113 GM TUBE TOP SCH ×2 (09:13→22:38)
[2020-05-07] MEDS: TRIAMCINOLONE 0.1% CREAM 80 GM TUBE TOP SCH ×2 (09:13→22:37)
[2020-05-07] MEDS: SODIUM HYPOCHLORITE 0.25% IRRIG 473 ML BOTTLE TOP SCH (09:13)
[2020-05-07] MEDS ORDERED: LACTULOSE 320 GM/480 ML BOTTLE RECTAL ONE (11:30)
[2020-05-07] MEDS ORDERED: MORPHINE 4 MG/1 ML VIAL IV PRN (17:47)
[2020-05-07] MEDS ORDERED: LORazepam 2 MG/1 ML VIAL IV PRN ×2 (17:47→17:50)
[2020-05-08] MEDS: MORPHINE 4 MG/1 ML VIAL IV PRN ×2 (01:16→05:24)
[2020-05-08 07:53] VITALS: BP 123/108
[2020-05-08] MEDS: METOPROLOL TARTRATE 25 MG TABLET PO SCH (08:14)
[2020-05-08] MEDS: SODIUM HYPOCHLORITE 0.25% IRRIG 473 ML BOTTLE TOP SCH (08:20)
[2020-05-08] MEDS: ZINC OXIDE PASTE 113 GM TUBE TOP SCH (09:20)
[2020-05-08] MEDS: TRIAMCINOLONE 0.1% CREAM 80 GM TUBE TOP SCH (10:37)
== END 2020-05-08 18:23 | disposition expired | DRG 432 ==
LOC: N.ED 10:41 → N.EDINP 13:26 → SUATTDRO 13:26 → N.ICU 04-24 12:08 → N.5E 04-29 11:31
PROVIDERS: ADMIT Internal Medicine; ATTEND Internal Medicine